=== PATIENT | female | born 1990 | race African-American/Black ===

== ENCOUNTER 2016-11-24 17:36 | Emergency (ER) | payer MEDICAID ==
--- NOTE | 2016-11-30 09:23 | ER ---
ADMIT: 11/24/2016 RM/LOC: ER [facility] MR#: [id number] [facility] [address] [place], [place] [address] OLIVA ROJASDUSTY Monsalve [address] [place] [address] Emergency Room Report SEX: F AGE: 26 : 1990 DATE: 11/24/2016 CHIEF COMPLAINT: Pain with urination. HISTORY OF PRESENT ILLNESS: A 26-year-old, female, who presents with 3 days duration of pain with urination. States the pain is still present. She has been using pyridium for pain with little relief. Rates the pain as a 5/10. She does have a history of some ovarian cysts. States this pain in the lower pelvis is really unchanged. She does have chronic back pain secondary to scoliosis. No real flank pain. No fevers, chills, nausea, vomiting, or diarrhea. Further questioning does reveal that she has had some white malodorous discharge from her vaginal area with vaginal itching. States she is currently only sexually active with one partner. She is not concerned about sexually transmitted infections. She is currently on gabapentin 400 mg t.i.d. for pain. ALLERGIES: NO KNOWN DRUG ALLERGIES. COURSE IN THE EMERGENCY ROOM: GENERAL: The patient was seen and examined. She is alert and oriented, in no acute distress. NECK: Soft, supple. RESPIRATORY: No respiratory distress. HEART: Regular rate and rhythm. ABDOMEN: Soft and nontender. No McBurney's point tenderness. No suprapubic tenderness. BACK: No CVA tenderness. SKIN: Warm and dry. EXTREMITIES: Nontender. LABORATORY DATA: UA unremarkable for any signs of infection. Urine test is negative. Given her symptoms, vaginal itching and white discharge, I will treat her empirically for vaginal candidiasis fluconazole 150 mg q.72 ADMIT: 11/24/2016 RM/LOC: ER [facility] MR#: [id number] [id number] [facility] [address] [place], [place] [address] DUSTY BENAVIDEZ [address] [place] [address] Emergency Room Report SEX: F AGE: 26 : 1990 hours x2 doses. IMPRESSION: 1. Dysuria. 2. Vulvovaginal candidiasis. DISPOSITION: The patient was started on fluconazole 150 mg tabs one tab p.o. every 72 hours for two doses. She is to follow up with [facility] if she is not improving. Continue to push fluids. Tylenol or Motrin use for pain. Continue home medications. Questions were sought and answered to the best of my ability and to the patient's satisfaction. Discharged in stable condition. GUADALUPE Evans / Bladimir Reece MD / ld JOB #: [id number] CC: Bladimir Reece MD, Attending Physician [facility], Family Physician
== END 2016-11-24 19:05 | disposition home or self-care (01) ==
LOC: ER 17:36
DX: B37.3 Candidiasis of vulva and vagina (principal); J45.909 Unspecified asthma, uncomplicated

== ENCOUNTER 2017-03-06 07:46 | Emergency (ER) | payer MEDICAID ==
--- NOTE | 2017-03-07 09:15 | ER ---
ADMIT: 03/06/2017 RM/LOC: ER [facility] MR#: [id number] [id number] [place], [place] [address] DUSTY BENAVIDEZ [address] [place] [address] Emergency Room Report SEX: F AGE: 26 : 1990 DATE: 03/06/2017 ADDENDUM: A 26-year-old black female coming with upper respiratory-like symptoms, serious sore throat, congestion. She has sinus for several days. Hurts to swallow. She has tried everything [id number], not getting better. Put her on amoxicillin 500 t.i.d. x7 days. She should follow up as needed. CONDITION ON DISCHARGE: Good. Anthony Parrish MD/ ld JOB #: [id number] CC: Anthony Parrish MD, Attending Physician Maria Luz Du, SPEECH AND LANGUAGE SPECIALIST-CHOIR DIRECTOR, Family Physician
== END 2017-03-06 08:25 | disposition home or self-care (01) ==
LOC: ER 07:46
DX: J02.9 Acute pharyngitis, unspecified (principal); J06.9 Acute upper respiratory infection, unspecified; J45.909 Unspecified asthma, uncomplicated; F17.210 Nicotine dependence, cigarettes, uncomplicated; Z90.710 Acquired absence of both cervix and uterus; Z79.899 Other long term (current) drug therapy